=== PATIENT | female | born 1965 | race Caucasian/White ===

== ENCOUNTER 2020-07-20 12:27 | Emergency (ER) | payer BC ==
[2020-07-20] MEDS ORDERED: IBUPROFEN 800 MG TABLET PO ONE (13:12)
--- NOTE | 2020-07-20 13:52 | RADIOLOGY REPORT (SQ) ---
EXAM DESCRIPTION: ANKLE LEFT COMPLETE; FOOT LEFT COMPLETE IMAGES COMPLETED DATE/TIME: 07/20/2020 1:38 pm REASON FOR STUDY: pain injury swelling COMPARISON: None. NUMBER OF VIEWS: Three views each. TECHNIQUE: AP, lateral, and oblique radiographic images acquired of the left ankle and left foot. LIMITATIONS: None. FINDINGS: MINERALIZATION: Normal. BONES: There are mildly displaced fractures of the medial malleolus and the distal fibula. JOINTS: The ankle mortise is grossly preserved. Probable small tibiotalar joint effusion. No malali gnment at the Lisfranc joint. Mild hallux valgus alignment. SOFT TISSUES: Moderate soft tissue swelling is present about the ankle. OTHER: No other significant finding. IMPRESSION: Displaced medial malleolus fracture. Chase type B fracture of the distal fibula. TECHNICAL DOCUMENTATION: JOB ID: [id number] 2010 [employer]- All Rights Reserved Reading location - IP/workstation name: [email or web address]
--- NOTE | 2020-07-20 13:52 | RADIOLOGY REPORT (SQ) ---
EXAM DESCRIPTION: ANKLE LEFT COMPLETE; FOOT LEFT COMPLETE IMAGES COMPLETED DATE/TIME: 07/20/2020 1:38 pm REASON FOR STUDY: pain injury swelling COMPARISON: None. NUMBER OF VIEWS: Three views each. TECHNIQUE: AP, lateral, and oblique radiographic images acquired of the left ankle and left foot. LIMITATIONS: None. FINDINGS: MINERALIZATION: Normal. BONES: There are mildly displaced fractures of the medial malleolus and the distal fibula. JOINTS: The ankle mortise is grossly preserved. Probable small tibiotalar joint effusion. No malali gnment at the Lisfranc joint. Mild hallux valgus alignment. SOFT TISSUES: Moderate soft tissue swelling is present about the ankle. OTHER: No other significant finding. IMPRESSION: Displaced medial malleolus fracture. Chase type B fracture of the distal fibula. TECHNICAL DOCUMENTATION: JOB ID: [id number] 2010 [employer]- All Rights Reserved Reading location - IP/workstation name: [email or web address]
--- NOTE | 2020-07-20 14:29 | ER Document Report ---
ED Medical Screen (RME) - General Chief Complaint: Ankle Injury Stated Complaint: ANKLE PAIN Time Seen by Provider: 07/20/20 13:06 Mode of Arrival: Wheelchair Information source: Patient Notes: 54-year-old female presented to ED for pain to the left ankle. She stepped off a curb and then could not stand back up. She states she did blackout when she tried to stand up. She has been treated with ibuprofen in the emergency room. She did have a x-ray which shows a displaced medial malleolus and a type Chase B fracture of the fibula. I did speak with Dr. Simmons who stated that the patien t needs the ankle reduced and then splinted and he will see her tomorrow. I have greeted and performed a rapid initial assessment of this patient. A comprehensive ED assessment and evaluation of the patient, analysis of test results and completion of medical decision making process will be conducted by an additional ED providers. - Related Data Allergies/Adverse Reactions: Sulfa (Sulfonamide Antibiotics) Allergy (Verified 07/20/20 13:35) Physical Exam - Vital signs Vitals: Temp Pulse Resp BP Pulse Ox 98.1 F 77 20 113/80 100 07/20/20 12:32 07/20/20 12:32 07/20/20 12:32 07/20/20 12:32 07/20/20 12:32 Course - Vital Signs Vital signs: Temp Pulse Resp BP Pulse Ox 98.1 F 77 20 113/80 100 07/20/20 12:32 07/20/20 12:32 07/20/20 12:32 07/20/20 12:32 07/20/20 12:32
[2020-07-20] MEDS ORDERED: ONDANSETRON HCL INJ/PF 4 MG/2 ML SDV IV ONE (14:49)
[2020-07-20] MEDS ORDERED: FENTANYL CITRATE INJ/PF 100 MCG/2 ML AMPUL IV ONE (14:49)
[2020-07-20] MEDS ORDERED: KETAMINE HCL INJ 500 MG/10 ML VIAL IV ONE (15:15)
--- NOTE | 2020-07-20 15:18 | ER Document Report ---
ED General - General Chief Complaint: Ankle Injury Stated Complaint: ANKLE PAIN Time Seen by Provider: 07/20/20 13:06 Primary Care Provider: JN ROSAS DO [ACTIVE STAFF] - Follow up as needed Mode of Arrival: Wheelchair Notes: HPI: 54-year-old female who was walking and stepped off a curb twisting her left ankle. She did not hear a pop. She fell onto her right side but denies any head trauma or pain to any other location. No loss of consciousness, not on blood thinners, no fevers or vomiting. She denies any chest pain lightheadedness or dizziness causing the fall ROS: See HPI All other review of systems reviewed and otherwise negative Reviewed vital signs and nursing note as charted by RN. PHYSICAL EXAM: CONSTITUTIONAL: Alert and oriented and responds appropriately to questions. Well-appearing; well-nourished HEAD: Normocephalic; atraumatic EYES: Full extraocular range of motion ENT: Normal nose; no rhinorrhea; moist mucous membranes; pharynx without lesions noted NECK: Supple without meningismus; non-tender CARD: Regular rate and rhythm; no murmurs; symmetric distal pulses RESP: Normal chest excursion without splinting or tachypnea; breath sounds clear and equal bilaterally ABD/GI: Normal bowel sounds; non-distended; soft, non-tender BACK: The back appears normal and is non-tender to palpation EXT: Patient has some swelling deformity to the left lateral ankle. Strong dorsalis pedis pulse. Good capillary refill to the toes with sensation intact SKIN: No acute lesions noted NEURO: All other extremities have excellent strength PSYCH: The patient's mood and manner are appropriate. Grooming and personal hygiene are appropriate. - Related Data Allergies/Adverse Reactions: Sulfa (Sulfonamide Antibiotics) Allergy (Verified 07/20/20 13:35) Past Medical History - General Information source: Patient - Social History Smoking Status: Never Smoker Family History: Reviewed & Not Pertinent Patient has homicidal ideation: No Neurological Medical History: Reports: Hx Migraine Past Surgical History: Reports: Hx Gynecologic Surgery - endometrial ablation Physical Exam - Vital signs Vitals: Temp Pulse Resp BP Pulse Ox 98.1 F 77 20 113/80 100 07/20/20 12:32 07/20/20 12:32 07/20/20 12:32 07/20/20 12:32 07/20/20 12:32 Course - Re-evaluation Re-evalutation: 07/20/20 15:18 Given the above history and physical examination, we ordered an x-ray of the left foot and ankle. X-ray recording as recorded. I called and spoke directly to the orthopedic surgeon reviewed the fracture. He believes that we will be able to perform this here in the emergency department without his assistance. I have had a discussion with the family regarding the risks and benefits of conscious sedation. They understand these risks. I have gone over the patient's previous medical history. No contraindications. We will perform conscious sedation with fracture dislocation reduction. 07/20/20 16:19 Given the patient's prolonged sedation I did provide a small dose of ketamine. Patient did require a transient episode of oxygenation given a transient drop in oxygen saturation. The procedure went excellent with good fracture reduction and splinting. Please see the procedure notes. - Vital Signs Vital signs: Temp Pulse Resp BP Pulse Ox 98.1 F 87 15 128/83 H 99 07/20/20 12:32 07/20/20 16:29 07/20/20 16:36 07/20/20 16:36 07/20/20 16:36 Procedures - Conscious Sedation Conscious sedation Time started: 04:04 Time completed: 04:17 Consent obtained: Yes Prior complications: General anesthesia - longer awake time Pt with a mild systemic disease.: P2. - ASA Classification. Airway Evaluation: Normal anatomy Mallampati Classification: Class 2 Used during procedure: Suction available, IV access obtained, Pulse ox on pt., surveillance system monitor on pt. Medications administered: Ketamine Reversal agents: None I personally performed/intraservice time: Sedation, Procedure, 30 min or less Notes: Very transient less than 20 seconds drop in oxygen saturation - Immobilization Left Ankle Pre-Proc Neuro Vasc Exam: Normal Immobilizer type: Other - Plaster posterior mold with a stirrup strip placed directly by myself Performed by: Provider Post-Proc Neuro Vasc Exam: Normal Alignment checked and good: Yes - Joint Reduction/Fracture Care Left Ankle Consent obtained: Yes Conscious sedation: Yes Pre-procedure NV exam: Yes Fracture: Closed Manipulation comment: Traction countertraction Post-reduction x-ray: Joint reduced Reduction attempts: 1 Complications: No Discharge - Discharge Clinical Impression: Fracture dislocation of left ankle Qualifiers: Encounter type: initial encounter Fracture type: closed Qualified Code(s): S82.892A - Other fracture of left lower leg, initial encounter for closed fracture Condition: Good Disposition: HOME, SELF-CARE Additional Instructions: Come back immediately for any increased pain, change in location or quality of pain, swelling of the leg, numbness or discoloration to the toes, or any other acute problems. Please follow-up with orthopedics as discussed. Prescriptions: Hydrocodone/Acetaminophen [[place] 5-325 mg Tablet] 1 tab PO Q8 #10 tablet Ondansetron [Zofran Odt 4 mg Tablet] 1 tab PO Q6H #15 tab.rapdis Referrals: JN ROSAS DO [ACTIVE STAFF] - Follow up as needed
--- NOTE | 2020-07-20 17:01 | RADIOLOGY REPORT (SQ) ---
EXAM DESCRIPTION: ANKLE LEFT COMPLETE IMAGES COMPLETED DATE/TIME: 07/20/2020 4:39 pm REASON FOR STUDY: Tr2; s/p fracture reduction COMPARISON: Left ankle radiographs earlier same day NUMBER OF VIEWS: Three views. TECHNIQUE: AP, lateral, and oblique radiographic images acquired of the left ankle. LIMITATIONS: None. FINDINGS: There has been interval placement of external splinting material with reduction of the med ial malleolar and distal fibular fractures. The alignment is now near anatomic. No new fractures ar e identified. Soft tissue detail is obscured by overlying splinting material. IMPRESSION: Interval reduction and splinting of medial malleolar and distal fibular fractures. The alignment is near-anatomic. TECHNICAL DOCUMENTATION: JOB ID: [id number] 2010 [employer]- All Rights Reserved Reading location - IP/workstation name: [email or web address]
[2020-07-20 17:33] VITALS: BP 112/81
== END 2020-07-20 17:33 | disposition home or self-care (01) ==
LOC: ER 12:27
DX: S82.52XA Displaced fracture of medial malleolus of left tibia, initial encounter for closed fracture (principal); X50.0XXA Overexertion from strenuous movement or load, initial encounter; Z88.2 Allergy status to sulfonamides
CPT/HCPCS: 99285; 99152; 96374; 96375; 73610; 73630; 27762; J3010; J3490; J2405